=== PATIENT | female | born 1960 | race African-American/Black ===

== ENCOUNTER 2020-08-06 10:11 | Emergency (ER) | payer SELFPAY ==
[~2020-08-06 10:11] MED LIST: Iopamidol-370 76% 500 ML 1 ML ONE
[2020-08-06 11:27] LABS: #Lymphocytes 1.3 thou/uL (1.20-3.40); #Monocytes 0.3 thou/uL (0.11-0.59); #Neutrophils 3.9 thou/uL (1.40-6.50); %Basophils 0.7 % (0.0-1.0); %Eosinophils 0.3 % (0.0-10.0); %Lymphocytes 23.2 % (21.0-51.0); %Monocytes 4.7 % (0.0-10.0); %Neutrophils 71.2 % (42.0-75.0); Hemoglobin 15.3 g/dL (12.0-16.0); Mean Corpuscular HGB CONC 31.1 g/dL (32.0-36.0); Mean Corpuscular Hemoglobin 25.8 pg (27.0-31.0); Mean Corpuscular Volume 82.9 fL (78.0-98.0); Mean Platelet Volume 8.1 fL (7.4-10.4); Platelet Count 267 thou/uL (130-400); Red Blood Cell (RBC) Count 5.92 mill/uL (4.20-5.40); White Blood Cell (WBC) Count 5.5 thou/uL (4.8-10.8)
[2020-08-06 11:58] LABS: ALT (SGPT) 9 U/L (8-55); AST (SGOT) 18 U/L (5-34); Albumin 3.7 g/dL (3.5-5.0); Alkaline Phosphatase 128 U/L (40-110); Anion Gap 18 mmol/L (10-20); BUN (Urea Nitrogen) 7 mg/dL (9.8-20.1); Bilirubin, Total 0.2 mg/dL (0.2-1.2); Calc. Creatinine Clearance 0 mL/min (70-130); Calcium 9.3 mg/dL (7.8-10.44); Carbon Dioxide 21 mmol/L (22-29); Chloride 98 mmol/L (98-107); Globulin 4.2 g/dL (2.4-3.5); Glucose 266 mg/dL (70-105); Potassium 3.5 mmol/L (3.5-5.1); Protein, Total 7.9 g/dL (6.0-8.3); Sodium 133 mmol/L (136-145)
[2020-08-06] MEDS ORDERED: Morphine 4 MG/ML VIAL ONE (13:12)
[2020-08-06] MEDS ORDERED: Ondansetron PF 4 MG/2 ML Vial ONE (13:12)
[2020-08-06] MEDS ORDERED: Acetaminophen 500 MG TAB ONE (14:19)
[2020-08-06] MEDS ORDERED: Azithromycin 500 MG VIAL ONE (14:20)
[2020-08-06] MEDS ORDERED: cefTRIAXone\\ROCEPHIN 1 GM VIAL ONE (14:23)
== END 2020-08-06 16:47 | disposition home or self-care (01) ==
LOC: ERS 10:11
DX: J18.9 Pneumonia, unspecified organism (principal); R11.10 Vomiting, unspecified; E11.9 Type 2 diabetes mellitus without complications; I10 Essential (primary) hypertension; Z79.84 Long term (current) use of oral hypoglycemic drugs
CPT/HCPCS: 36415; 71045; 74177; 80053; 83605; 85025; 87040; 96365; 96375; J0456; J0696; J2270; J2405; Q9967

== ENCOUNTER 2020-08-09 20:37 | Inpatient (IN) | payer SELFPAY ==
[2020-08-25 11:39] VITALS: BMI 29.7
[2020-08-26 10:04] VITALS: TEMP 97.5
[2020-08-26 12:22] VITALS: BP 148/82
== END 2020-08-26 18:03 | disposition expired | DRG 177 ==
LOC: ERS 20:37 → T4-B 23:07 → IMCU/EMU 08-11 10:25 → CCU 08-26 09:15
PROVIDERS: ADMIT Internal Medicine; ATTEND Internal Medicine
PROC: 8E0ZXY6 Isolation (ICD-10-PCS; 2020-08-09)
PROC: XW033E5 Introduction of Remdesivir Anti-infective into Peripheral Vein, Percutaneous Approach, New Technology Group 5 (ICD-10-PCS; principal; 2020-08-11)
PROC: 5A09357 Assistance with Respiratory Ventilation, Less than 24 Consecutive Hours, Continuous Positive Airway Pressure (ICD-10-PCS; 2020-08-25)
PROC: 3E033XZ Introduction of Vasopressor into Peripheral Vein, Percutaneous Approach (ICD-10-PCS; 2020-08-26)
DX: U07.1 COVID-19 (principal); J12.82 Pneumonia due to coronavirus disease 2019; J96.01 Acute respiratory failure with hypoxia; E87.1 Hypo-osmolality and hyponatremia; G93.49 Other encephalopathy; Z51.5 Encounter for palliative care; Z66 Do not resuscitate; E11.65 Type 2 diabetes mellitus with hyperglycemia; R10.9 Unspecified abdominal pain; E11.51 Type 2 diabetes mellitus with diabetic peripheral angiopathy without gangrene; E86.0 Dehydration; I10 Essential (primary) hypertension; T36.95XA Adverse effect of unspecified systemic antibiotic, initial encounter; T50.2X5A Adverse effect of carbonic-anhydrase inhibitors, benzothiadiazides and other diuretics, initial encounter; E87.6 Hypokalemia; I95.9 Hypotension, unspecified; Z89.511 Acquired absence of right leg below knee
CPT/HCPCS: 0240U; 36415; 36416; 36600; 71045; 80048; 80053; 81001; 82550; 82570; 82728; 82805; 83605; 83735; 83930; 83935; 84156; 84300; 84443; 84484; 85007; 85025; 85027; 85379; 86140; 86141; 87040; 93005; 93923; 94660; 95816; 95819; 95957; 96374; C9113; J0360; J0456; J0692; J0696; J1100; J1650; J1815; J1940; J2060; J2270; J2358; J2930; J3490; J7030; J7050; J8540